=== PATIENT | male | born 1955 | race African-American/Black ===

== ENCOUNTER 2016-10-03 13:18 | Emergency (ER) ==
[2016-10-03] MEDS ORDERED: ANTIVERT PO ONE (13:59)
--- NOTE | 2016-10-03 14:03 | ED EKG INTERP ---
EKG Interpretation - EKG Time of EKG reading by physician:: 13:28 EKG Read and Signed by:: Emily Delcid EKG Interpretation (*Must complete 3 of following elements*): Abnormal Rate: 81 (possible left atrial enlargement ) Rhythm: NSR Attestation - Scribe Verification/Attestation Scribe:: Raven Poe Acting as Scribe for:: Emily Delcid Scribe documention review:: This chart was documented by a scribe and accurately reflects the service the provider performed and the decisions made by the provider.
[2016-10-03] MEDS ORDERED: ATIVAN PO ONE (14:08)
--- NOTE | 2016-10-03 14:27 | ED EKG INTERP ---
EKG Interpretation - EKG Time of EKG reading by physician:: 13:28 EKG Read and Signed by:: Emily Delcid EKG Interpretation (*Must complete 3 of following elements*): Normal Rate: 81 (possible left atrial enlargement) Rhythm: NSR Attestation - Scribe Verification/Attestation Scribe:: Raven Poe Acting as Scribe for:: Emily Delcid Scribe documention review:: This chart was documented by a scribe and accurately reflects the service the provider performed and the decisions made by the provider.
--- NOTE | 2016-10-03 14:28 | PROVIDER DOCUMENTATION ---
HPI-General Adult - General Source: patient - History of Present Illness -Gen Adult Nature of Presenting Problems: Pt is a 60 yom who came to the ED with a cc of high blood pressure. Pt reports he was dizzy earlier and his blood pressure was high. Pt reports he had a stroke last week. Pt reports his blood pressure is normal now. Location of Pain/Injury: reports: none Pain Radiation: reports: no radiation Quality of Pain: reports: none Severity: reports: mild Onset/Duration: reports: just prior to arrival Timing: reports: gone now Context/Activities at Onset: reports: recent emotional stress Associated Symptoms: reports: dizziness, other (high blood pressure) Similar Symptoms Previously?: Yes Recently seen or treated by another doctor?: Yes <Raven Poe - Last Filed: 10/03/16 15:38> <Emily Delcid - Last Filed: 10/03/16 15:59> - General Chief Complaint: B/P Problems Stated Complaint: BP HIGH Time Seen by Provider: 10/03/16 13:39 Allergies/Adverse Reactions: Patient Allergies Allergy/AdvReac Type Severity Reaction Status Date / Time No Known Allergies Allergy Verified 10/03/16 13:44 Home Medications: Amlodipine Besylate [Norvasc] 5 mg PO DAILY 09/23/16 Bromocriptine [Cycloset] 0.8 mg PO DAILY 09/23/16 Metoprolol Succinate E.r. [Toprol Xl] 100 mg PO DAILY 09/23/16 Ramipril [Altace] 10 mg PO DAILY 09/23/16 Review of Systems - Adult - REVIEW OF SYSTEMS - ADULT Constitutional: denies: chills, fever Eyes: denies: blurred vision, double vision Ears, Nose, Mouth & Throat: reports: no symptoms reported Cardiovascular: denies: heart murmur, orthopnea Respiratory: denies: pleurisy, wheezing Gastrointestinal: reports: no symptoms reported Genitourinary: reports: no symptoms reported Musculoskeletal: reports: no symptoms reported Integumentary: reports: no symptoms reported Neurological: reports: dizziness/vertigo. denies: numbness, seizure Psychiatric: denies: emotional problems, panic attacks Endocrine: reports: no symptoms reported Hematologic/Lymphatic: reports: no symptoms reported Allergic/Immunologic: reports: no symptoms reported All Other Systems: Reviewed and Negative <Raven Poe - Last Filed: 10/03/16 15:38> Past History - Adult - PAST MEDICAL HISTORY-ADULT Review of Records: reports: Old Records Reviewed, Nursing Assessment Review Major Childhood Illnesses: reports: denies history Cardiovascular: reports: HTN Respiratory: reports: denies history Gastrointestinal: reports: denies history Obstetrical/Gynecological: reports: denies history Genitourinary: reports: denies history Musculoskeletal: reports: denies history Neurological: reports: Seizures/Epilepsy Endocrine/Immune: reports: Diabetes Other Conditions: reports: denies history - PRIOR SURGERIES/PROCEDURES Surgical/Procedure History: reports: tonsillectomy - IMMUNIZATION STATUS Childhood Immunizations: See Nurse Assessment Flu Vaccine: See Nurse Assessment - FAMILY HISTORY Family History: reviewed, not pertinent <Raven Poe - Last Filed: 10/03/16 15:38> Physical Exam-General - PHYSICAL EXAM-ADULT Initial Vital Signs Reviewed: Yes - CONSTITUTIONAL General Appearance: appears well, alert, no apparent distress - EYES Eyes: PERRL/EOMI, pink conjunctivae - HEAD, EARS, NOSE, MOUTH & THROAT HENMT: normocephalic/atraumatic, moist mucous membranes, normal ENT inspection - NECK Neck: non-tender, full range of motion, normal inspection - RESPIRATORY Respiratory: chest non-tender, lungs clear, normal breath sounds - CARDIOVASCULAR Cardiovascular: normal peripheral pulses, regular rate, rhythm, no edema - GASTROINTESTINAL (ABDOMEN) Abdominal Exam: normal bowel sounds, non tender, soft - LYMPHATIC Lymphatic: no adenopathy - MUSCULOSKELETAL Back Exam: normal inspection, no CVA tenderness, no vertebral tenderness Extremity: normal range of motion, non-tender, normal gait - SKIN Integumentary: normal color, normal turgor, warm/dry - NEUROLOGIC Neurologic: grossly normal, no motor/sensory deficits - PSYCHIATRIC Psych/Mental Status: normal mood/affect, normal thought content, normal thought process, oriented x 3 <Raven Poe - Last Filed: 10/03/16 15:38> Progress - PLAN OF CARE/RESULTS Progress/Plan/Lab Results: Vital Signs - 24 hr 10/03/16 10/03/16 10/03/16 13:22 14:02 14:05 Temperature 97.7 F Pulse Rate 98 H 81 81 Respiratory 18 18 18 Rate Blood Pressure 186/106 147/96 181/105 O2 Sat by Pulse 99 100 99 Oximetry Orders Category Date Time Status HEAD W/O CONTRAST [CT] Stat Exams 10/03/16 13:58 Taken UA NIMS W/REFLEX CULT [URINALYSIS] Stat Lab 10/03/16 14:22 Completed UDS [URINE DRUG SCREEN] Stat Lab 10/03/16 14:22 Completed Lorazepam [Ativan] Med 10/03/16 14:08 Discontinued 1 mg PO NOW ONE Meclizine [Antivert] Med 10/03/16 13:59 Discontinued 25 mg PO NOW ONE EKG [EKG] Stat Ther 10/03/16 13:59 Ordered Laboratory Tests 10/03/16 10/03/16 14:22 14:22 Urine Source CLEAN CATCH Urine Color YELLOW Urine Turbidity CLEAR Urine pH 5.5 Ur Specific [place] 1.012 Urine Protein NEGATIVE Ur Glucose (Stick) 100 A Ur Ketones (Stick) TRACE A Urine Blood NEGATIVE Urine Nitrite NEGATIVE Urine Bilirubin NEGATIVE Urobilinogen Dipstick NORMAL Urine Leukocytes NEGATIVE Urine WBC (Auto) <10 Urine RBC (Auto) <10 U Epithel Cells (Auto) <10 Urine Bacteria (Auto) NEGATIVE Urine Opiates Screen NONE DETECTED Ur Oxycodone Screen NONE DETECTED Ur Methadone, Qual NONE DETECTED Ur Barbiturates Screen NONE DETECTED Ur Phencyclidine Scrn NONE DETECTED Ur Amphetamines Screen NONE DETECTED U Benzodiazepines Scrn NONE DETECTED Urine Cocaine Screen NONE DETECTED U Cannabinoids Screen NONE DETECTED - CT/MRI 1 CT Study: Head (potential subacute focal infarct in the left frontal lobe. This is probably to infarct the patient reports last week diagnosed on imaging from an outside facility. otherwise NAP) <Raven Poe - Last Filed: 10/03/16 15:38> - PLAN OF CARE/RESULTS Progress/Plan/Lab Results: Laboratory Results - last 24 hr 10/03/16 10/03/16 14:22 14:22 Urine Source CLEAN CATCH Urine Color YELLOW Urine Turbidity CLEAR Urine pH 5.5 Ur Specific [place] 1.012 Urine Protein NEGATIVE Ur Glucose (Stick) 100 A Ur Ketones (Stick) TRACE A Urine Blood NEGATIVE Urine Nitrite NEGATIVE Urine Bilirubin NEGATIVE Urobilinogen Dipstick NORMAL Urine Leukocytes NEGATIVE Urine WBC (Auto) <10 Urine RBC (Auto) <10 U Epithel Cells (Auto) <10 Urine Bacteria (Auto) NEGATIVE Urine Opiates Screen NONE DETECTED Ur Oxycodone Screen NONE DETECTED Ur Methadone, Qual NONE DETECTED Ur Barbiturates Screen NONE DETECTED Ur Phencyclidine Scrn NONE DETECTED Ur Amphetamines Screen NONE DETECTED U Benzodiazepines Scrn NONE DETECTED Urine Cocaine Screen NONE DETECTED U Cannabinoids Screen NONE DETECTED Vital Signs Temp Pulse Resp BP Pulse Ox 10/03/16 15:37 114/69 10/03/16 14:05 81 18 181/105 99 10/03/16 14:02 81 18 147/96 100 10/03/16 13:22 97.7 F 98 H 18 186/106 99 No Known Allergies Allergy (Verified 10/03/16 13:44) Amlodipine Besylate [Norvasc] 5 mg PO DAILY 09/23/16 Bromocriptine [Cycloset] 0.8 mg PO DAILY 09/23/16 Metoprolol Succinate E.r. [Toprol Xl] 100 mg PO DAILY 09/23/16 Ramipril [Altace] 10 mg PO DAILY 09/23/16 ATORVAstatin [Lipitor] 40 mg PO DAILY #90 tablet 09/25/16 Aspirin 325 mg PO DAILY #90 tablet 09/25/16 Glyburide/Metformin HCl [Glyburide-Metformin 5-500 mg] 1 each PO TID #90 tablet 09/25/16 Levetiracetam [Keppra] 500 mg PO BID #60 tablet 09/25/16 Laboratory 10/03/16 10/03/16 14:22 14:22 Urine Source CLEAN CATCH Urine Color YELLOW Urine Turbidity CLEAR Urine pH 5.5 Ur Specific [place] 1.012 Urine Protein NEGATIVE Ur Glucose (Stick) 100 A Ur Ketones (Stick) TRACE A Urine Blood NEGATIVE Urine Nitrite NEGATIVE Urine Bilirubin NEGATIVE Urobilinogen Dipstick NORMAL Urine Leukocytes NEGATIVE Urine WBC (Auto) <10 Urine RBC (Auto) <10 U Epithel Cells (Auto) <10 Urine Bacteria (Auto) NEGATIVE Urine Opiates Screen NONE DETECTED Ur Oxycodone Screen NONE DETECTED Ur Methadone, Qual NONE DETECTED Ur Barbiturates Screen NONE DETECTED Ur Phencyclidine Scrn NONE DETECTED Ur Amphetamines Screen NONE DETECTED U Benzodiazepines Scrn NONE DETECTED Urine Cocaine Screen NONE DETECTED U Cannabinoids Screen NONE DETECTED Orders Category Date Time Status FSBS [Finger Stick Blood Sugar (ED)] DIRECTED Care 10/03/16 15:52 Active HEAD W/O CONTRAST [CT] Stat Exams 10/03/16 13:58 Draft UA NIMS W/REFLEX CULT [URINALYSIS] Stat Lab 10/03/16 14:22 Completed UDS [URINE DRUG SCREEN] Stat Lab 10/03/16 14:22 Completed Lorazepam [Ativan] Med 10/03/16 14:08 Discontinued 1 mg PO NOW ONE Meclizine [Antivert] Med 10/03/16 13:59 Discontinued 25 mg PO NOW ONE EKG [EKG] Stat Ther 10/03/16 13:59 Ordered - REASSESSMENT Reassessment #1 Time Reassessed: 15:54 Status: improving (Pt normalized after PO Ativan. Pt has no complaints. Pt had a full stroke work up last week in the hospital and his CT scan showed subacute changes which is compatible with his previous stroke.) <Emily Delcid - Last Filed: 10/03/16 15:59> Departure <Raven Poe - Last Filed: 10/03/16 15:38> - Departure Time of Disposition Order: 15:55 Certified Medical Emergency: Emergent <Emily Delcid - Last Filed: 10/03/16 15:59> - Departure DIAGNOSIS: Elevated blood pressure, situational, Status post stroke Disposition: HOME 01 Condition: Stable Additional Instructions: Follow up with regular MD in 2-3 days. Return to ER as needed. Plenty of oral fluids. Referrals: Mariam Pascual MD [Primary Care Provider] - Attestation - Scribe Verification/Attestation Scribe:: Raven Poe Acting as Scribe for:: Emily Delcid Scribe documention review:: This chart was documented by a scribe and accurately reflects the service the provider performed and the decisions made by the provider. <Raven Poe - Last Filed: 10/03/16 15:38> Physician Attestation
[2016-10-03 14:29] LABS: URINE CULTURE NEEDED? NO; URINE MICRO REVIEW NEEDED? NO; URINE SOURCE CLEAN CATCH
[2016-10-03 14:33] LABS: BILIRUBIN URINE NEGATIVE (NEGATIVE); BLOOD URINE NEGATIVE (NEGATIVE); COLOR YELLOW; GLUCOSE URINE 100 mg/dL (NEGATIVE); LEUKOCYTES URINE NEGATIVE (NEGATIVE); NITRITE URINE NEGATIVE (NEGATIVE); PH URINE 5.5; PROTEIN URINE NEGATIVE (NEGATIVE); SP GRAVITY URINE 1.012; TURBIDITY URINE CLEAR (CLEAR); UR EPITHELIAL CELLS <10 /HPF (<10); URINE BACTERIA NEGATIVE /HPF; URINE RBC <10 /HPF (<10); URINE WBC <10 /HPF (<10); UROBILINOGEN URINE NORMAL (NORMAL)
[2016-10-03 14:42] LABS: UR AMPHETAMINES QUAL NONE DETECTED (NONE DETECT); UR BARBITUATES QUAL NONE DETECTED (NONE DETECT); UR BENZODIAZEPIN QUAL NONE DETECTED (NONE DETECT); UR CANNABINOIDS QUAL NONE DETECTED (NONE DETECT); UR COCAINE QUAL NONE DETECTED (NONE DETECT); UR METHADONE QUAL NONE DETECTED (NONE DETECT); UR OPIATES QUAL NONE DETECTED (NONE DETECT); UR OXYCODONE QUAL NONE DETECTED (NONE DETECT); UR PCP QUAL NONE DETECTED (NONE DETECT)
--- NOTE | 2016-10-03 15:16 | Diag Imaging Result Document ---
PROCEDURE NAME: HEAD W/O CONTRAST - 10/03/2016 CT HEAD WITHOUT CONTRAST: COMPARISON: None available. FINDINGS: There is patchy low density in the periventricular and subcortical white matter suggesting mild to moderate microangiopathy. There is a focus of potential cortical low density in the left frontal lobe seen on image 43 of series 2. This low density may represent a focal subacute infarct, given the patient reports a history of an infarct 1 week ago detected on imaging from an outside facility. There is no other evidence of acute infarct, given the limitations of CT versus MRI, otherwise. There is no discrete intracranial mass, mass effect, or intracranial hemorrhage. There are several maxillary sinus small mucous retention cysts. Surrounding soft tissues and bony structures are unremarkable otherwise. 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 Please correlate with the patient's clinical history and the prior report from the outside facility.
[2016-10-03 15:37] VITALS: BP 114/69
--- NOTE | 2016-10-05 06:13 | EKG Report ---
Test Performed on : 10/03/2016 1:28:29 PM Test Reason : AMS Blood Pressure : / mmHG Vent. Rate : 081 BPM Atrial Rate : 081 BPM P-R Int : 142 ms QRS Dur : 074 ms QT Int : 368 ms P-R-T Axes : 060 037 007 degrees QTc Int : 427 ms Normal sinus rhythm. Possible Left atrial enlargement Borderline ECG When compared with ECG of 23-SEP-2016 21:42, No significant change was found Unconfirmed Result
== END 2016-10-03 16:36 | disposition home or self-care (01) ==
LOC: ED 13:18
DX: I10 Essential (primary) hypertension (principal); R42 Dizziness and giddiness; E11.9 Type 2 diabetes mellitus without complications; Z79.899 Other long term (current) drug therapy; Z86.73 Personal history of transient ischemic attack (TIA), and cerebral infarction without residual deficits
CPT/HCPCS: 70450; 81001; 82948; 93005; G0480

== ENCOUNTER 2016-11-27 00:31 | Emergency (ER) ==
--- NOTE | 2016-11-27 01:05 | PROVIDER DOCUMENTATION ---
HPI-General Adult - General Chief Complaint: B/P Problems Stated Complaint: STROKE SX Time Seen by Provider: 11/27/16 00:51 Source: patient, family Allergies/Adverse Reactions: Patient Allergies Allergy/AdvReac Type Severity Reaction Status Date / Time No Known Allergies Allergy Verified 10/03/16 13:44 Home Medications: Home Medication List Medication Instructions Recorded Confirmed Last Taken Type Amlodipine Besylate [Norvasc] 5 mg PO DAILY 09/23/16 10/03/16 10/03/16 History Bromocriptine [Cycloset] 0.8 mg PO DAILY 09/23/16 10/03/16 10/03/16 History Metoprolol Succinate E.r. [Toprol 100 mg PO DAILY 09/23/16 10/03/16 10/03/16 History Xl] Ramipril [Altace] 10 mg PO DAILY 09/23/16 10/03/16 10/03/16 History ATORVAstatin [Lipitor] 40 mg PO DAILY #90 tablet 09/25/16 10/03/16 10/03/16 Rx Aspirin 325 mg PO DAILY #90 tablet 09/25/16 10/03/16 10/03/16 Rx Glyburide/Metformin HCl 1 each PO TID #90 tablet 09/25/16 10/03/16 10/03/16 Rx [Glyburide-Metformin 5-500 mg] Levetiracetam [Keppra] 500 mg PO BID #60 tablet 09/25/16 10/03/16 10/03/16 Rx Lorazepam [Ativan] 1 mg PO Q12H PRN PRN #5 tablet 10/03/16 Unknown Rx - History of Present Illness -Gen Adult Nature of Presenting Problems: 61 yo male presents to ER with c/o nervousness and shortness of breath that started 2 hours ago but has improved since taking his ativan about 1.5 hours ago. He denies cough/fever/chills/urinary problems. He states his blood sugar was 111 this morning[address] He saw Dr. Pascual last Wednesday for the same symptoms and was given ativan to use prn. He only takes it 1-2 times a week. Location of Pain/Injury: reports: none Pain Radiation: reports: no radiation Quality of Pain: reports: none Severity: reports: mild Onset/Duration: reports: 1-3 hours ago Timing: reports: still present, improving Context/Activities at Onset: reports: none Modifying Factors: improves with: nothing Associated Symptoms: reports: anxiety, shortness of breath Similar Symptoms Previously?: Yes Recently seen or treated by another doctor?: Yes (saw Dr. Pascual last Wednesday) Review of Systems - Adult - REVIEW OF SYSTEMS - ADULT Constitutional: reports: no symptoms reported Eyes: reports: no symptoms reported Ears, Nose, Mouth & Throat: reports: no symptoms reported Cardiovascular: reports: no symptoms reported Respiratory: reports: see HPI, shortness of breath Gastrointestinal: reports: no symptoms reported Genitourinary: reports: no symptoms reported Musculoskeletal: reports: no symptoms reported Integumentary: reports: no symptoms reported Neurological: reports: no symptoms reported Psychiatric: reports: see HPI, anxiety Endocrine: reports: no symptoms reported Hematologic/Lymphatic: reports: no symptoms reported Allergic/Immunologic: reports: no symptoms reported All Other Systems: Reviewed and Negative Past History - Adult - PAST MEDICAL HISTORY-ADULT Review of Records: reports: Old Records Reviewed, Nursing Assessment Review, Medications Reviewed, Social history reviewed & non-contributory. Major Childhood Illnesses: reports: denies history Cardiovascular: reports: HTN Respiratory: reports: denies history Gastrointestinal: reports: denies history Obstetrical/Gynecological: reports: denies history Genitourinary: reports: denies history Musculoskeletal: reports: denies history Neurological: reports: CVA, Seizures/Epilepsy Endocrine/Immune: reports: Diabetes Other Conditions: reports: denies history - PRIOR SURGERIES/PROCEDURES Surgical/Procedure History: reports: tonsillectomy - IMMUNIZATION STATUS Childhood Immunizations: See Nurse Assessment Flu Vaccine: See Nurse Assessment - FAMILY HISTORY Family History: reviewed, not pertinent - SOCIAL HISTORY Smoking: denies, non-smoker Substance Use: none/never, denies Alcohol Use Frequency: never Living Situation: family Physical Exam-General - PHYSICAL EXAM-ADULT Initial Vital Signs Reviewed: Yes - CONSTITUTIONAL General Appearance: appears well, alert, no apparent distress, anxious - EYES Eyes: PERRL/EOMI, pink conjunctivae - HEAD, EARS, NOSE, MOUTH & THROAT HENMT: normocephalic/atraumatic, moist mucous membranes - RESPIRATORY Respiratory: lungs clear, normal breath sounds, no respiratory distress - CARDIOVASCULAR Cardiovascular: normal peripheral pulses, regular rate, rhythm - GASTROINTESTINAL (ABDOMEN) Abdominal Exam: normal bowel sounds, non tender, soft - MUSCULOSKELETAL Back Exam: normal inspection Extremity: normal range of motion, non-tender, normal inspection, no pedal edema Peripheral Pulses: radial (R): 2+, radial (L): 2+, dorsalis-pedis (R): 2+, dorsalis-pedis (L): 2+ - SKIN Integumentary: normal color, normal turgor, warm/dry - NEUROLOGIC 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 Had a 10 minutes discussion on a diabetic diet. Laboratory Tests 11/27/16 11/27/16 11/27/16 00:50 01:03 01:10 WBC RBC Hgb Hct MCV MCH MCHC RDW Std Deviation Plt Count MPV Immature Gran % (Auto) Neut % (Auto) Lymph % (Auto) [place] % (Auto) Eos % (Auto) Baso % (Auto) Immature Gran # (Auto) Neut # (Auto) Lymph # (Auto) [place] # (Auto) Eos # (Auto) Baso # (Auto) Sodium 134 L Potassium 4.0 Chloride 99 Carbon Dioxide 25 Anion Gap 10 BUN 10 Creatinine 0.9 Estimated GFR/1.73 m2 > 60 BUN/Creatinine Ratio 11 Glucose 293 H POC Glucose 267 H D Calculated Osmolality 278 Calcium 9.4 Total Bilirubin 0.30 AST 15 ALT 18 Alkaline Phosphatase 88 Total Protein 7.4 Albumin 4.3 Globulin 3.0 Albumin/Globulin Ratio 1.0 Urine Source VOIDED Urine Color YELLOW Urine Clarity CLEAR Urine pH 6.5 Ur Specific [place] 1.005 Urine Protein 1+(30 mg/dL) A Urine Ketones NEGATIVE Urine Blood NEGATIVE Urine Nitrite NEGATIVE Urine Bilirubin NEGATIVE Urine Urobilinogen NORMAL Urine Microscopic RBC <10 Urine WBC NEGATIVE Urine Microscopic WBC <10 Ur Epithelial Cells <10 Urine Bacteria NEGATIVE Urine Glucose 3+(500 mg/dL) A 11/27/16 01:10 WBC 7.47 RBC 5.03 Hgb 15.2 Hct 42.7 MCV 84.9 MCH 30.2 MCHC 35.6 RDW Std Deviation 13.1 Plt Count 291 MPV 11.4 H Immature Gran % (Auto) 0.1 Neut % (Auto) 65.2 Lymph % (Auto) 22.6 [place] % (Auto) 10.6 H Eos % (Auto) 1.1 Baso % (Auto) 0.4 Immature Gran # (Auto) 0.01 Neut # (Auto) 4.87 Lymph # (Auto) 1.69 [place] # (Auto) 0.79 H Eos # (Auto) 0.08 Baso # (Auto) 0.03 Sodium Potassium Chloride Carbon Dioxide Anion Gap BUN Creatinine Estimated GFR/1.73 m2 BUN/Creatinine Ratio Glucose POC Glucose Calculated Osmolality Calcium Total Bilirubin AST ALT Alkaline Phosphatase Total Protein Albumin Globulin Albumin/Globulin Ratio Urine Source Urine Color Urine Clarity Urine pH Ur Specific [place] Urine Protein Urine Ketones Urine Blood Urine Nitrite Urine Bilirubin Urine Urobilinogen Urine Microscopic RBC Urine WBC Urine Microscopic WBC Ur Epithelial Cells Urine Bacteria Urine Glucose Orders Category Date Time Status Finger Stick Blood Sugar (ED) DIRECTED Care 11/27/16 00:58 Active Repeat Vital Signs .Blood Pressure Care 11/27/16 01:46 Active Repeat Vital Signs .Heart Rate Care 11/27/16 01:46 Active CHEST-2 VIEWS [RAD] Stat Exams 11/27/16 00:58 Taken CBC WITH ELECTRONIC DIFF [HEME] Stat Lab 11/27/16 01:10 Completed COMPREHENSIVE METABOLIC PANEL [CHEM] Stat Lab 11/27/16 01:[address] W/POSS RFLX CULT [URINALYSIS] Stat Lab 11/27/16 00:50 Completed Clonidine [Catapres] Med 11/27/16 01:08 Discontinued 0.2 mg PO NOW ONE Vital Signs - 24 hr 11/27/16 11/27/16 11/27/16 00:37 01:30 01:55 Temperature 97.7 F Pulse Rate 116 H 85 Respiratory 18 18 Rate Blood Pressure 216/113 169/106 159/095 O2 Sat by Pulse 98 96 Oximetry - REASSESSMENT Reassessment #1 Time Reassessed: 02:00 (improved B/P and anxiety resolved. Patient states he feels much better) Status: improving - XRAY 1 XRAY Study: Chest Impression: Normal (no acute disease) XRAY Interpretation: Interpreted by Dr. Pascual Departure - Departure Time of Disposition Order: 02:11 DIAGNOSIS: Anxiety, Hyperglycemia, Health education/counseling HTN (hypertension) Qualifiers: Hypertension type: essential hypertension Qualified Code(s): I10 - Essential ( primary) hypertension Disposition: HOME 01 Certified Medical Emergency: Emergent Condition: Good Additional Instructions: Follow up with primary care doctor this week. Follow a low carb diabetic diet. Take home medications as prescribed. ED Follow Up Instructions: You have been treated by a care provider in the Emergency Department. These instructions are being provided to you so you can have an understanding of how to care for yourself upon discharge. Upon discharge from the Emergency Department, you are responsible for making arrangements for follow-up care by a physician of your choice. Take all prescribed medications as directed. Return to the Emergency Department immediately for any new or worsening symptoms. You may call the Physician Referral phone number at [phone] to obtain a list of Physicians who are taking new patients. Referrals: Mariam Pascual MD [Primary Care Provider] - Attestation - Physician/ ADAM Attestation Patient care was provided by Advanced Practice Provider:: Yes Advanced Practice Provider:: Dariela Andersen Advanced Practice Provider documentation review:: The Mid-level provider documentation, treatment plan and medical decision making was reviewed by the physician who agrees with all treatment and medical decision making by the MLP.
[2016-11-27] MEDS ORDERED: CATAPRES PO ONE (01:08)
[2016-11-27 01:11] LABS: MANUAL DIFF NEEDED? NO
[2016-11-27 01:12] LABS: URINE CULTURE PL NEEDED? NO; URINE SOURCE VOIDED
[2016-11-27 01:24] LABS: BASO% 0.4 % (0.0-0.8); EOS# 0.08 X1000 (0.0-0.7); EOS% 1.1 % (0.0-10.0); HEMATOCRIT 42.7 % (42.0-52.0); HEMOGLOBIN 15.2 g/dL (14.0-18.0); IMM GRAN# 0.01 X1000 (0.0-0.04); IMM GRAN% 0.1 % (0.0-0.5); LYMPH# 1.69 X1000 (1.2-3.4); LYMPH% 22.6 % (20.5-51.1); MCH 30.2 PG (27-31); MCHC 35.6 g/dL (33-37); MCV 84.9 FL (81-99); MONO# 0.79 X1000 (0.11-0.59); MONO% 10.6 % (1.7-9.3); MPV 11.4 FL (7.4-10.4); NEUT% 65.2 % (42.2-75.2); PLT 291 X1000 (130-400); RBC 5.03 XMIL (4.7-6.1)
[2016-11-27 01:28] LABS: BILIRUBIN URINE NEGATIVE (NEGATIVE); BLOOD URINE NEGATIVE (NEGATIVE); CLARITY CLEAR (CLEAR); COLOR YELLOW; LEUKOCYTES URINE NEGATIVE (NEGATIVE); NITRITE URINE NEGATIVE (NEGATIVE); PH URINE 6.5; PROTEIN URINE 1+(30 mg/dL) mg/dL (NEGATIVE); SP GRAVITY URINE 1.005; URINE EPITHELIAL CELLS <10 /HPF (<10); URINE RBC <10 /HPF (<10); URINE WBC <10 /HPF (<10); UROBILINOGEN URINE NORMAL
[2016-11-27 01:35] LABS: AGAP 10; ALBUMIN 4.3 g/dL (3.5-5.0); ALKALINE PHOSPHATASE 88 U/L (32-122); BUN 10 mg/dL (8-22); CALCIUM 9.4 mg/dL (8.8-10.2); CHLORIDE 99 mmol/L (98-107); COSMO 278; GOT 15 U/L (10-34); GPT 18 U/L (10-44); SODIUM 134 mmol/L (136-145); TCO2 25 mmol/L (25-35); TOTAL PROTEIN 7.4 g/dL (6.3-8.3)
[2016-11-27 01:55] VITALS: BP 159/095
--- NOTE | 2016-11-27 07:51 | Diag Imaging Result Document ---
PROCEDURE NAME: CHEST-2 VIEWS - 11/27/2016 FRONTAL AND LATERAL CHEST, TWO VIEWS: COMPARISON: 09/23/2016. FINDINGS: The lungs are well expanded. The heart is not enlarged. The vessels are not distended. No pneumonia. No pleural effusions. No free air beneath the diaphragm. IMPRESSION: No acute abnormality.
== END 2016-11-27 02:31 | disposition home or self-care (01) ==
LOC: P.ED 00:31
DX: E11.65 Type 2 diabetes mellitus with hyperglycemia (principal); I10 Essential (primary) hypertension; F41.9 Anxiety disorder, unspecified; R06.02 Shortness of breath; R45.0 Nervousness; E11.9 Type 2 diabetes mellitus without complications; R56.9 Unspecified convulsions; Z79.82 Long term (current) use of aspirin; Z79.899 Other long term (current) drug therapy; Z71.89 Other specified counseling; Z86.73 Personal history of transient ischemic attack (TIA), and cerebral infarction without residual deficits
CPT/HCPCS: 71020; 80053; 81001; 82948; 85025

== ENCOUNTER 2017-04-05 11:16 | Inpatient (IN) ==
--- NOTE | 2017-04-05 15:53 | Diag Imaging Result Doc PS360 ---
MRI LOWER EXT W/WO CON-LEFT - 04/05/2017 INDICATION: left foot decubitus ulcer TECHNIQUE: COMPARISON: None FINDINGS: There is soft tissue swelling with hyperintensity and enhancement at the lateral forefoot, particularly at the head of the fifth metatarsal. No significant fluid collections. Bone marrow signal is normal. There is degeneration at the base of the great toe. IMPRESSION: 1. Soft tissue swelling suggesting cellulitis at the lateral forefoot. No evidence for osteomyelitis. 2. Degenerative changes at the base of the great toe. Electronically signed by Jluis Childers 04/05/2017 3:50 PM
[2017-04-05] MEDS: ZOSYN 3.375 GM/NS 3.375 GM/50 ML IVPB IV SCH ×2 (17:17→22:30)
[2017-04-05 17:27] LABS: MANUAL DIFF NEEDED? NO
[2017-04-05 17:29] LABS: BASO% 0.6 % (0.0-0.8); EOS# 0.09 X1000 (0.0-0.7); EOS% 1.3 % (0.0-10.0); HEMATOCRIT 43.6 % (42.0-52.0); LYMPH# 1.46 X1000 (1.2-3.4); LYMPH% 20.8 % (20.5-51.1); MCH 30.2 PG (27-31); MCHC 34.4 g/dL (33-37); MCV 87.7 FL (81-99); MONO# 0.68 X1000 (0.11-0.59); MONO% 9.7 % (1.7-9.3); MPV 10.9 FL (7.4-10.4); NEUT% 67.6 % (42.2-75.2); PLT 278 X1000 (130-400); RBC 4.97 XMIL (4.7-6.1)
[2017-04-05] MEDS ORDERED: HYDROXYZINE PO PRN (17:39)
[2017-04-05 17:40] LABS: HEMOGLOBIN A1C 10.6 % (4.8-6.0)
[2017-04-05 17:43] LABS: AGAP 9; BUN 10 mg/dL (8-22); CHLORIDE 101 mmol/L (98-107); COSMO 273; POTASSIUM 4.2 mmol/L (3.5-5.1); SODIUM 136 mmol/L (136-145); TCO2 26 mmol/L (25-35)
[2017-04-05 18:31] LABS: SED RATE 0 mm/hr (0-15)
[2017-04-05] MEDS ORDERED: BOOSTRIX VACCINE IM ONE (21:53)
--- NOTE | 2017-04-05 22:28 | HISTORY AND PHYSICAL ---
CHIEF COMPLAINT: Followup from the emergency room yesterday at [facility] for elevated blood pressure and shortness of breath. Also had developed 2 month history of decubitus pressure ulcer, neuropathy from the bottom of the left foot which had not been noticed at the last visit. HISTORY OF PRESENT ILLNESS: He is a 61-year-old, noncompliant, uncontrolled diabetic male who came here to my office today in followup from the emergency room visit. Apparently his said that he had a hole in the left foot which is not getting better. He did not notice until few weeks ago. After removing the sock, he has purulent, foul smelling pus coming from 1 cm neuropathy ulcer on the bottom of the left forefoot between 4th and 5th metatarsal space. It is 1 cm in diameter and 0.5 cm deep. The whole foot was swollen and decreased sensory exam with monofilament. He has been hospitalized basically for rule out osteomyelitis, debridement, IV antibiotics, check the arterial blood flow study. His sugars are running 250. As a result, hospital admission was warranted. PAST MEDICAL HISTORY: BPH, uncontrolled diabetes, history of seizures from stroke, hyperlipidemia, hypertension, peripheral neuropathy due to diabetes, left frontal lobe stroke. PAST SURGICAL HISTORY: Bilateral middle ear tubes and circumcision. MEDICINES: Altace 10 mg twice daily, aspirin 81 mg daily, Plavix 75 daily, Glucovance 5/500 two tablets p.o. b.i.d., Keppra 500 p.o. b.i.d., Lipitor 40 mg daily, metoprolol 100 mg daily, Norvasc 10 mg daily. ALLERGIES: Not known. SOCIAL HISTORY: Lives in [place]. No smoking. No alcohol. Working in [employer]. second time 5 years, 2 children. FAMILY HISTORY: Father at the age of 67 from diabetes and heart attack. Mom is 78 with diabetes. HEALTH MAINTENANCE: Flu vaccine 2016, pneumococcal vaccine 2016. Last prostate exam September 2016. Colonoscopy 2011. Last tetanus was not up to date. REVIEW OF SYSTEMS: HEENT: No headache. No vision problem. No earache. No sore throat. No ear pain. Neck: No goiter. No lymphadenopathy. No neck rigidity. No neck pain. Cardiopulmonary: No chest pain, shortness of breath, PND, orthopnea. GI: No nausea, vomiting, abdominal pain. : No history of hesitancy, frequency, dysuria. Musculoskeletal: Ulcer on the bottom of the left foot. No back pain. Neurologic: No focal symptoms or weakness. Seizures are well controlled. PHYSICAL EXAMINATION: VITAL SIGNS: Afebrile. Vital signs stable. 6 feet, 174 pounds. HEENT: Atraumatic, normocephalic. Pupils equal, reactive to light. TMs are normal. Nose and throat within normal limits. NECK: Supple. No lymphadenopathy. JVD is not elevated. CHEST: Bilateral air entry. No rales, no wheezing. HEART: Sounds are regular. No murmur. ABDOMEN: Belly is soft, nontender. Good bowel sounds. No masses palpable. EXTREMITIES: Decreased monofilament exam 1 cm neuropathic ulcer on the bottom of the left foot between the 4th and 5th the inter metatarsal space. INVESTIGATIONS: CBC is normal. SMA 7 is normal. A1c 10.6. CRP was high. Sedimentation rate was 0. MRI of the left foot: No evidence of osteomyelitis noted. Consistent with cellulitis. ASSESSMENT AND PLAN: 1. A 61-year-old male with uncontrolled diabetes, noncompliance, presented with a neuropathy callus on the bottom of the left foot. Plan is a local debridement, wound cultures, surgical consult, IV Zosyn. Deep venous thrombosis prophylaxis with Lovenox. 2. Hyperlipidemia, on Lipitor. 3. Uncontrolled diabetes, on Glucovance. We will check the C-peptide in the morning. 4. Hypertension, on Altace and metoprolol and amlodipine. 5. History of seizures, on Keppra 500 p.o. b.i.d. Discussed with Dr. Zurita and will follow up on his recommendations. Also check ankle-brachial index. cc: Alberto Pascual MD
[2017-04-05] MEDS: ALTACE PO SCH (22:30)
[2017-04-05] MEDS: LIPITOR PO SCH (22:30)
[2017-04-05] MEDS: KEPPRA PO SCH (22:30)
[2017-04-05] MEDS: HUMALOG SUBQ SCH (22:31)
[2017-04-06] MEDS: ZOSYN 3.375 GM/NS 3.375 GM/50 ML IVPB IV SCH ×4 (03:02→22:38)
[2017-04-06] MEDS: HUMALOG SUBQ SCH ×4 (06:28→22:32)
--- NOTE | 2017-04-06 07:03 | VASCULAR LAB ---
DATE: 04/05/2017 STUDY: Lower extremity arterial study at rest. REFERRING PHYSICIAN: Dr. Pascual. INDICATION: The patient is diabetic and has ulcerations of the left foot. Brachial pressure 170. Right high thigh pressure 250. Right low thigh pressure 236. Right calf pressure 159. Right dorsalis pedis 148. Right posterior tibial 139. Right AB index 0.87. Right great toe pressure 102. Right toe to brachial index 0.60. The PVRs appear okay. The PPGs at the toe are diminished. On the left, high thigh pressure 250. Left low thigh pressure 246. Left calf pressure 165. Left dorsalis pedis 151. Left posterior tibial 165. Left ankle brachial index 0.97. Left great toe pressure 98. Left toe to brachial index 0.58. The PVRs again are satisfactory to the ankle. The PPGs at the toe are diminished. INTERPRETATION: This study shows evidence of digital vessel disease. The healing could be compromised due to the digital vessel disease. This certainly would not be consistent with claudication. cc: MD Alberto De La Fuente MD
[2017-04-06 09:33] LABS: INR 1.03; PROTIME 10.8 Seconds (9.2-11.7)
[2017-04-06] MEDS ORDERED: NS 250 ML ONE (09:54)
[2017-04-06] MEDS: NORVASC PO SCH (10:22)
[2017-04-06] MEDS: TOPROL XL PO SCH (10:22)
[2017-04-06] MEDS: KEPPRA PO SCH ×2 (10:23→22:33)
[2017-04-06] MEDS: ALTACE PO SCH ×2 (10:23→22:36)
[2017-04-06] MEDS: GLUCOPHAGE PO SCH ×2 (10:24→22:37)
[2017-04-06] MEDS: DIABETA PO SCH ×2 (10:24→22:37)
--- NOTE | 2017-04-06 11:17 | PROGRESS NOTE ---
DATE: 04/06/2017 SUBJECTIVE: The patient is doing very well. Patient was seen by Dr. Zurita, waiting for debridement. REVIEW OF SYSTEMS: None reported. OBJECTIVE: Vital Signs: Stable. HEENT: Within normal limits. Neck: Supple. Chest: Clear. Heart: Sounds are regular. Abdomen: Belly is soft, nontender. Good bowel sounds. Extremities: Left foot: A 1 cm pressure ulcer on the left foot noted. Foul-smelling discharge. INVESTIGATIONS: Wound cultures are pending. Vascular studies: Right SANDRA 0.8, left SANDRA 0.9. Significant distal vessel disease. Right toe brachial index 0.6. On the left side, it is 0.5. CRP is slightly high. MRI of the foot: No evidence of osteomyelitis. ASSESSMENT AND PLAN: 1. Left foot 5th neuropathic ulcer with localized cellulitis. Elevated CRP. No evidence of osteomyelitis. Continue on IV Zosyn. 2. Ankle-brachial index: No evidence of resting ischemia, surgical debridement. 3. Uncontrolled diabetes. We will follow up on C-peptide. 4. Hyperlipidemia, on Lipitor. 5. Hypertension, on metoprolol and Altace. We will follow up. LEVEL OF DOCUMENTATION: Twenty-five minutes. cc: Alberto Pascual MD
--- NOTE | 2017-04-06 12:30 | Diag Imaging Result Doc PS360 ---
EXAM: 3 PHASE BONE SCAN HISTORY: r/o osteo left 5th toe TECHNIQUE: Three phase scanning over the feet and ankles following intravenous injection of 25.8 mCi of technetium 99m MDP. COMMENT: There is markedly hyperemic flow to the left lower leg and foot compared to the right. There is also increased blood pool activity over the left foot and lower leg compared to the right. There is increased static bone activity in the area of the great toe and fifth toe on the left and to a lesser extent on the dorsum of the tarsal region on the right side, the right fifth metatarsophalangeal joint, and the first metatarsophalangeal joint on the right side. Plain radiography was also obtained of the left foot for correlation. There is an ulcer apparently on the plantar aspect of the fifth metatarsophalangeal joint. The presence of static bone activity in this area makes the diagnosis of osteomyelitis likely. The possibility of septic arthritis cannot be excluded. There are some degenerative changes in the first metatarsophalangeal joint which may be responsible for the increased activity in this region. There is extensive arterial calcification particularly in the dorsalis pedis artery. IMPRESSION: Hyperemia throughout the left foot which may be indicative of cellulitis. Possibility of osteomyelitis and/or septic arthritis in the left fifth metatarsophalangeal joint cannot be excluded. Electronically signed by Chad eVntura 04/06/2017 12:28 PM
--- NOTE | 2017-04-06 12:51 | Diag Imaging Result Doc PS360 ---
EXAM: FOOT COMPLETE LEFT INDICATION: TO GO WITH [facility] BONE SCAN TECHNIQUE: 3 views COMPARISON: None. FINDINGS: There is soft tissue edema and ulceration underlying the fifth MTP joint. There are no discrete bony erosions involving the head of the fifth metatarsal or base of the proximal fifth phalanx. However, I'm still suspicious that there is early osteomyelitis given the findings on bone scan. There has probably not been in enough time to manifest radiographically. A follow-up radiograph is recommended. There are mild degenerative changes at several IP joints and the first MTP joint. There is atherosclerotic calcification at the dorsalis pedis. IMPRESSION: Soft tissue edema and ulceration indicating cellulitis underlying the fifth MTP joint but no discrete bony erosions are identified by plain radiograph. Please see above discussion. Electronically signed by Luis Daniel Silvestre 04/06/2017 12:48 PM
[2017-04-06] MEDS ORDERED: DIPRIVAN 1% ONE (15:31)
[2017-04-06] MEDS ORDERED: XYLOCAINE-MPF 2% ONE (15:32)
[2017-04-06] MEDS ORDERED: QUELICIN (DOSE) ONE (15:43)
[2017-04-06] MEDS ORDERED: HYDROGEN PEROXIDE SOLUTION ONE (16:01)
--- NOTE | 2017-04-06 16:07 | CONSULTATION ---
DATE OF CONSULTATION: 04/06/2017 CONCLUSION: The patient has a cellulitis involving the left foot. Both by bone scan and x-ray there is no bone involvement. A culture taken from the foot is growing gram- negative rods. RECOMMENDATION: I agree with the decision to treat the patient with Zosyn pending culture results. Today Dr. Zurita will be debriding the patient's foot. DISCUSSION: The patient tells me that for about 2 months he has had progressive pain and swelling of his left foot. In the past 2-3 days the patient's drainage from the left foot has an odor to it. His bone scan shows evidence of cellulitis. X-ray also shows evidence of cellulitis. Neither of the procedures shows osteomyelitis. The patient's CBC shows a white count of 7,030, hemoglobin 15, and platelet count 278,000. Creatinine 0.7. GFR is greater than 60. PAST MEDICAL HISTORY/REVIEW OF SYSTEMS: Eyes and ears: The patient has good hearing and vision. Neck: No stiffness. Respiratory: No cough or shortness of breath. Cardiac: No chest pain or palpitations. GI: No nausea, vomiting, or diarrhea. The patient normally has only 1 stool every 1-2 days. Bones, joints, muscles: See discussion about the patient's left foot. He is not bothered elsewhere by any bone or joint pain or muscle aches. Endocrine: The patient is diabetic but he does not have thyroid disease. Neurologic: Patient does not have seizures. He is not losing any motor or sensory function in his extremities. Integument: No rash. The remainder of the patient's review of systems was completed and was negative. PREVIOUS HOSPITALIZATIONS AND OPERATIONS: He has had a tonsillectomy, cataract surgery, and a stroke. MEDICAL DISEASES: Positive for diabetes mellitus, hypertension, stroke, cataract, and hyperlipidemia. INFECTIOUS DISEASE HISTORY: Positive for UTI. Negative for pneumonia. FAMILY HISTORY: Positive for diabetes mellitus, myocardial infarction, stroke, and hypertension. SOCIAL HISTORY: The patient lives in [place]. 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 He does not smoke or drink or abuse drugs. He has no pets at home. ALLERGIES: He has no known drug allergies. HOME MEDICATIONS: Include the following. He takes aspirin, amlodipine, metoprolol, Vistaril, Altace, Keppra, glyburide, and atorvastatin. PHYSICAL EXAMINATION: Vital Signs: Temperature is 98.1 degrees, pulse 68, respirations 17, blood pressure 151/86. Patient is 6 feet tall, weighs 174 pounds. General: This is a healthy- appearing, middle-aged male. He is in no acute distress. HEENT: The only part that is not healthy is his oral hygiene. He is missing many of his teeth and some of his teeth have caries. He can hear my spoken words and see near objects. Neck: No meningismus. Lungs : Clear to auscultation. Cardiovascular: Regular heart rate. I had difficulty feeling peripheral pulses in his legs. Abdomen: Soft and nontender. Extremities: The left foot had an ulcer on it in the distal lateral part. There was no drainage but there was an odor from the ulcerated area. Neurologic: Patient is alert. He can move his extremities. There is no tremor. His sensation is intact to touch. His memory as regarding his medical history was slightly diminished. Thank you for the consult. cc: MD Alberto Granger MD MTDD
--- NOTE | 2017-04-06 16:41 | OPERATIVE NOTE ---
PROCEDURE DATE: 04/06/2017 PREOP: Cellulitis with osteomyelitis left foot, lateral 5th metatarsal head. PROCEDURE: Debridement. DESCRIPTION OF PROCEDURE: The patient was brought to the operating room. After satisfactory induction of IV and LMA anesthesia, his left foot was prepped and draped in the appropriate manner. The ulcerated lesion was debrided down to and including the metatarsal head on the 5th toe. He has osteo on his bone scan. The wound was irrigated with peroxide. It had previously been cultured with 3 different bugs on the Gram stain. It was packed with Betadine-soaked Kerlix. A sterile dressing was applied. He was subsequently awakened in the operating room and transferred to recovery. ESTIMATED BLOOD LOSS: Less than 5 mL. cc: MD Alberto Luque MD
[2017-04-06] MEDS: ASPIRIN PO SCH (22:35)
[2017-04-06] MEDS: LOVENOX SUBQ SCH (22:35)
[2017-04-06] MEDS: LIPITOR PO SCH (22:36)
[2017-04-07] MEDS: ZOSYN 3.375 GM/NS 3.375 GM/50 ML IVPB IV SCH ×3 (03:26→16:16)
[2017-04-07 07:06] LABS: MANUAL DIFF NEEDED? NO
[2017-04-07 07:13] LABS: BASO% 0.5 % (0.0-0.8); EOS# 0.13 X1000 (0.0-0.7); EOS% 2.1 % (0.0-10.0); HEMATOCRIT 40.5 % (42.0-52.0); HEMOGLOBIN 14.1 g/dL (14.0-18.0); LYMPH# 1.75 X1000 (1.2-3.4); LYMPH% 28.2 % (20.5-51.1); MCH 30.5 PG (27-31); MCHC 34.8 g/dL (33-37); MCV 87.7 FL (81-99); MONO# 0.73 X1000 (0.11-0.59); MONO% 11.8 % (1.7-9.3); MPV 11.5 FL (7.4-10.4); NEUT% 57.4 % (42.2-75.2); PLT 256 X1000 (130-400); RBC 4.62 XMIL (4.7-6.1)
[2017-04-07 07:39] LABS: AGAP 11; BUN 8 mg/dL (8-22); CALCIUM 8.5 mg/dL (8.8-10.2); CHLORIDE 107 mmol/L (98-107); COSMO 282; POTASSIUM 4.4 mmol/L (3.5-5.1); SODIUM 141 mmol/L (136-145); TCO2 23 mmol/L (25-35)
--- NOTE | 2017-04-07 09:07 | PROGRESS NOTE ---
DATE: 04/07/2017 SUBJECTIVE: Patient is doing very well. Interval history was reviewed. The patient was seen by Dr. Plaza and Dr. Zurita debrided and it is getting close to the head of the 5th metatarsal bone. Bone scan has findings suspicious for osteomyelitis. Blood sugars are out of control. C-peptide is on the low side. REVIEW OF SYSTEMS: Otherwise none reported. PHYSICAL EXAMINATION: Vital Signs: Stable. Chest: Clear. Heart: Heart sounds are regular. Extremities: Left foot has bandage applied. LABORATORY DATA: Wound cultures are gram-negative rods. ASSESSMENT AND PLAN: 1. Fifth metatarsal osteomyelitis with pressure ulcer. Needs intravenous antibiotics. Waiting for a PICC line. Discussed with Dr. Plaza. He is going to decide the antibiotic down the road. 2. Diabetes is poorly controlled. C-peptide is on the low side. Continue on Glucovance. We will add long-acting insulin at bedtime. 3. Other problems are stable. Discussed the plan of care. 4. Level of documentation is 25 minutes. cc: Alberto Pascual MD
[2017-04-07] MEDS: TOPROL XL PO SCH (10:21)
[2017-04-07] MEDS: GLUCOPHAGE PO SCH ×4 (10:22→21:00)
[2017-04-07] MEDS: ALTACE PO SCH ×2 (10:22→21:33)
[2017-04-07] MEDS: ASPIRIN PO SCH ×2 (10:22→21:00)
[2017-04-07] MEDS: DIABETA PO SCH ×4 (10:22→21:00)
[2017-04-07] MEDS: NORVASC PO SCH (10:22)
[2017-04-07] MEDS: KEPPRA PO SCH ×2 (10:22→21:33)
[2017-04-07] MEDS ORDERED: GOLYTELY PO ONE (11:03)
[2017-04-07] MEDS: HUMALOG SUBQ SCH ×3 (13:12→21:33)
--- NOTE | 2017-04-07 19:04 | PROGRESS NOTE ---
DATE: 04/07/2017 CONCLUSION: Patient is status post debridement of the left foot by Dr. Rom Zurita. He is debrided down to and including the metatarsal head of the 5th toe. The patient's bone scan showed the patient had cellulitis and possibly osteomyelitis of the left foot. The chest x-ray did not show any bony changes. The wound from the patient's foot is growing Streptococcus Enterobacter and diphtheroids. MEDICATIONS: The patient currently is on Zosyn. PHYSICAL EXAMINATION: Vital Signs: Temperature is 97.6 degrees, pulse 69, respirations 14, blood pressure 124/68. General: This is a healthy-appearing middle-aged male. He is in no acute distress. Lungs: Clear to auscultation. Cardiovascular: Regular heart rate. Abdomen: Soft and nontender. Extremities: The patient has a PICC in his left arm. The site is not bleeding or swollen. The patient's left foot which is the one that underwent surgery has a dressing around it. The dressing is intact. LAB AND X-RAY: As mentioned above, the bone scan showed possible osteomyelitis. The x-ray showed no osteomyelitis. Culture from the foot grew Streptococcus Enterobacter and diphtheroids. Patient's CBC shows a white count of 6210, hemoglobin 14.1, and platelet count 256,000. Creatinine is 0.9. GFR is greater than 60.. ASSESSMENT AND PLAN: The patient already has a PICC in place. I put in a consult for [facility] to supply the patient's home IV antibiotic. I am switching the patient from Zosyn to cefepime. The dose of cefepime will be 2 g IV every 12 hours. I told the patient that plan is to treat him for 6 weeks with IV antibiotics. I have requested that the patient see me in the office at 3 weeks and then again at 6 weeks, at which time we will remove his PICC and stop his antibiotics. COMORBIDITIES: Are he has diabetes mellitus. cc: MD Alberto Granger MD
[2017-04-07] MEDS: MAXIPIME 2 GM/NS 2 GM/100 ML IVPB IV SCH (21:00)
[2017-04-07] MEDS: LOVENOX SUBQ SCH (21:33)
[2017-04-07] MEDS: LIPITOR PO SCH (21:33)
[2017-04-08] MEDS: HUMALOG SUBQ SCH ×5 (05:26→21:15)
--- NOTE | 2017-04-08 08:43 | PROGRESS NOTE ---
DATE: 04/08/2017 SUBJECTIVE: Interval history was reviewed. PICC line was placed on the left side. Cultures grew gram negative rods with Enterobacter diphtheroids and strep viridans. Discussed with Dr. Plaza. REVIEW OF SYSTEMS: None reported. PHYSICAL EXAMINATION: Vital Signs: Afebrile. Vitals are stable. HEENT: Within normal limits. Left foot: Bandage was applied. Otherwise, no change. Wound cultures Enterobacter or diphtheroids, viridans strep. ASSESSMENT AND PLAN: 1. Left foot 5th metatarsal osteomyelitis with cellulitis. Plan is home on IV antibiotics, cefepime 2 g every 12 hours for 6 weeks. 2. Diabetes. Poorly controlled. C-peptide is on the low side. We will consider using 10 units of Lantus at 9:00 p.m. 3. We will discuss with the social sciences department chair for outpatient antibiotics. Once the arrangements will be made, will be discharged. Level of Documentation: 25 minutes. cc: Alberto Pascual MD
[2017-04-08] MEDS: MAXIPIME 2 GM/NS 2 GM/100 ML IVPB IV SCH ×2 (09:29→21:15)
[2017-04-08] MEDS: DIABETA PO SCH ×2 (09:29→19:27)
[2017-04-08] MEDS: ASPIRIN PO SCH (09:29)
[2017-04-08] MEDS: ALTACE PO SCH ×2 (09:29→21:15)
[2017-04-08] MEDS: KEPPRA PO SCH ×2 (09:29→21:15)
[2017-04-08] MEDS: GLUCOPHAGE PO SCH ×2 (09:29→19:27)
[2017-04-08] MEDS: TOPROL XL PO SCH (09:29)
[2017-04-08] MEDS: NORVASC PO SCH (09:29)
[2017-04-08] MEDS: LIPITOR PO SCH (21:15)
[2017-04-08] MEDS: LOVENOX SUBQ SCH (21:15)
[2017-04-09] MEDS: HUMALOG SUBQ SCH (06:41)
[2017-04-09 08:12] VITALS: BP 121/66
[2017-04-09] MEDS: MAXIPIME 2 GM/NS 2 GM/100 ML IVPB IV SCH (08:41)
[2017-04-09] MEDS: DIABETA PO SCH (08:46)
[2017-04-09] MEDS: KEPPRA PO SCH (08:46)
[2017-04-09] MEDS: TOPROL XL PO SCH (08:46)
[2017-04-09] MEDS: ASPIRIN PO SCH (08:46)
[2017-04-09] MEDS: GLUCOPHAGE PO SCH (08:46)
[2017-04-09] MEDS: NORVASC PO SCH (08:47)
[2017-04-09] MEDS: ALTACE PO SCH (08:47)
--- NOTE | 2017-04-11 05:24 | DISCHARGE SUMMARY ---
ADMISSION DATE: 04/05/2017 DISCHARGE DATE: 04/09/2017 DISCHARGING DIAGNOSIS: Left foot peripheral neuropathy ulcer, 1 cm, associated with head of the 5th metatarsal osteomyelitis. SECONDARY DIAGNOSES: 1. Uncontrolled diabetes. A1c 10.9. 2. Benign prostatic hypertrophy. 3. History of seizures from stroke. 4. Hyperlipidemia. 5. Hypertension. 6. Left frontal lobe stroke. 7. History of noncompliance. CONSULTANTS: 1. Dr. Zurita. 2. Dr. Keo Plaza. PROCEDURES: 1. PICC line on the left side. 2. Debridement of left foot peripheral neuropathic ulcer. BRIEF HISTORY: Please see the H and P that was done on 04/05/2017. In brief, he is a 61-year- old, noncompliant, uncontrolled diabetes. He was admitted to the hospital from my office with chief complaints of a hole in the left foot. Examination is consistent with peripheral diabetic ulcer, 1 cm in diameter as well as in depth, almost probing into the bone, associated with localized cellulitis. He has decreased sensation with the monofilament exam. Pulses are palpable. SANDRA 0.9 on both sides. However, toe brachial index consistent with moderate distal vessel disease. HOSPITAL COURSE: He was started on IV antibiotics with Zosyn and wound consult after the cultures. Wound cultures grew Enterobacter cloacae diphtheroids and Streptococcus viridans. Surgical consult was obtained with debridement and further workup revealed, on the bone scan, consistent with osteomyelitis. MRI of the foot was negative. The patient was consulted with Dr. Plaza who initiated IV antibiotics with cefepime 2 g twice daily, to continue after putting the PICC line on the left side. The A1c was 10.9. C-peptide was 1.9. Patient was advised to start using low dose of long-acting insulin at bedtime. LABORATORIES: CBC: White cell count 6.2, hematocrit 40, platelets 256,000. SMA 7: Sodium 140, potassium 4.4, chloride 107, BUN 8, creatinine 0.9. C-peptide 1.9. A1c 10.6. CRP is 8.1. Sedimentation rate is 0. RADIOLOGY PROCEDURES: Bone scan is positive for osteomyelitis. Foot x-ray, soft-tissue edema with cellulitis at the 5th MTP joint. No erosion of the bone noted. Lower extremity MRI, soft tissue swelling suggestive of cellulitis and DJD changes at the base of the great toe. Arterial flow studies, no evidence of distal vessel disease. SANDRA right side is 0.8 and left side is 0.9. Toe brachial index 0.6 on the right and 0.5 on the left side. The findings are consistent with distal vessel disease. Wound cultures are positive for Enterobacter diphtheroid and viridans. DISCHARGE INSTRUCTIONS: Altace 10 p.o. b.i.d., metoprolol 100 daily, aspirin 325 daily, Keppra 500 p.o. b.i.d., Lipitor 40 daily, hydroxyzine 25 b.i.d., amlodipine 10 daily, Glucovance 5/500 two tablets p.o. b.i.d., Lantus 10 units at bedtime. Outpatient home health care for the wound consult. Outpatient IV antibiotics, to continue on cefepime 2 g q[address] Plaza. Follow up in my office 10 days. cc: MD Nikolay Ayers MD Hugh Nabers
== END 2017-04-09 13:09 | disposition home health service (06) ==
LOC: DIRADM 11:16 → 3N 12:13
PROVIDERS: ADMIT Internal Medicine; ATTEND Internal Medicine

== ENCOUNTER 2019-04-19 10:28 | Observation (INO) ==
[2019-04-19 14:14] LABS: BASO# 0.02 X1000 (0.0-0.2); BASO% 0.2 % (0.0-0.8); EOS# 0.06 X1000 (0.0-0.7); EOS% 0.7 % (0.0-10.0); HEMATOCRIT 42.8 % (42.0-52.0); HEMOGLOBIN 14.6 g/dL (14.0-18.0); IMM GRAN# 0.03 X1000 (0.0-0.04); IMM GRAN% 0.4 % (0.0-0.5); LYMPH# 1.63 X1000 (1.2-3.4); LYMPH% 20.3 % (20.5-51.1); MCH 29.1 PG (27-31); MCHC 34.1 g/dL (33-37); MCV 85.3 FL (81-99); MONO# 0.82 X1000 (0.11-0.59); MONO% 10.2 % (1.7-9.3); MPV 10.7 FL (7.4-10.4); NEUT# 5.48 X1000 (1.4-6.5); NEUT% 68.2 % (42.2-75.2); PLT 293 X1000 (130-400); RBC 5.02 XMIL (4.7-6.1); RDW 13.9 % (11.5-14.5); WBC 8.04 X1000 (4.8-10.8)
--- NOTE | 2019-04-19 15:46 | Diag Imaging Result Doc PS360 ---
MRI BRAIN W/WO CONTRAST - 04/19/2019 INDICATION: CVA COMPARISON: None FINDINGS: There is a small old cortical-based stroke at the superior left cerebral hemisphere. There is moderately extensive periventricular white matter chronic microvascular disease. No intracranial mass or hemorrhage. There is no abnormal contrast enhancement. There are some mucosal retention cysts in the maxillary sinuses bilaterally. Midline structures are unremarkable. IMPRESSION: Chronic ischemic changes of the brain. No acute process. Electronically signed by Jluis Childers 04/19/2019 3:44 PM
[2019-04-19] MEDS: HUMULIN R SUBQ SCH ×2 (19:47→23:45)
--- NOTE | 2019-04-19 21:43 | HISTORY AND PHYSICAL ---
CHIEF COMPLAINT: Poor balance, stumbling and staggering on the right side, for the last 1 week. HISTORY OF PRESENT ILLNESS: He is a 63-year-old male who was evaluated in my office with dizziness and falling on the right side and weakness. Family was at bedside. He had a carotid Doppler which was negative. He has history of previous stroke. He is noncompliant. Basically, admitted to the hospital to rule out CVA. He was not able to ambulate and leaning toward the right side. He has some cerebellar signs noted. PAST MEDICAL HISTORY: 1. BPH. 2. Type 2 diabetes. 3. Dupuytren's contracture. 4. 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 5. Hyperlipidemia. 6. Hypertension. 7. Neuropathy due to diabetes. 8. Left-sided stroke syndrome. 9. Lacunar stroke. 10. Diabetic arthropathy. PAST SURGICAL HISTORY: 1. Myringotomy and bilateral tubes. 2. Circumcision. MEDICATIONS: 1. Amlodipine 10 mg daily. 2. Aspirin 325 daily. 3. Lipitor 80 daily. 4. Glucovance 5/500 p.o. b.i.d. 5. Insulin Lantus 20 units subcutaneous b.i.d. 6. Keppra 500 p.o. b.i.d. 7. Meclizine 25 t.i.d. 8. Metoprolol 100 daily. 9. Multivitamin 1 tablet daily. 10. Altace 10 mg p.o. b.i.d. ALLERGIES: Reported to not known. SOCIAL HISTORY: He is second time for 5 years. Two children. Lives in [place]. No drugs. No alcohol. No smoking. FAMILY HISTORY: Father at the age of 67 from diabetes and heart attack. Mother is 83 years old and still living. Siblings significant for diabetes and heart disease. HEALTH MAINTENANCE: Reported influenza vaccine declined. Pneumococcal, August 2016. Tdap 2017. Last physical, October 2018. Colonoscopy, 2011, by Dr. Joe. REVIEW OF SYSTEMS: HEENT: No headache, no vision problem, no nausea, no earache, no sore throat. Neck: No goiter. No lymphadenopathy. No bruit. Cardiopulmonary: No chest pain, shortness of breath, PND, orthopnea. GI: No nausea, vomiting, abdominal pain. : No history of hesitancy, frequency. Neurologic: Weakness on the right leg. Not able to walk, losing the balance. No neurological symptoms otherwise. OBJECTIVE: Vital Signs: Temperature is 97 degrees, pulse 79, blood pressure 142/88. HEENT: Atraumatic, normocephalic. Pupils equal, reactive to light. No nystagmus. TMs are normal. Neck: Supple. No lymphadenopathy. No bruit. Chest: Bilateral air entry. Heart: Sounds are regular. Abdomen: Belly is soft, nontender. Good bowel sounds. Rectal: Deferred. Extremities: Decreased pulses in both feet. He also had a surgery on the left foot; scar noted. Neurologic: No obvious neurological deficits, but positive Romberg on the right side. LABS: CBC is normal. Digoxin level is 0.3. SMA 7 in my office is notable. Last A1c was 9.6 and last lipid profile, glucose 271, LDL 207. ASSESSMENT AND PLAN: A 63-year-old male with complicated diabetes with neuropathy, nephropathy, microangiopathy, came in with a staggering gait, positive Romberg sign, balance problem, admitted to the hospital. 1. Rule out cerebrovascular accident. MRI of the brain, carotid Dopplers were negative. 2. Reconcile home medicines. 3. Physical therapy consult. 4. Check the blood flow in both legs. 5. Based on that, further recommendations will be followed. cc: Alberto Pascual MD
[2019-04-19] MEDS: KEPPRA PO SCH (23:44)
[2019-04-19] MEDS: GLUCOVANCE 5-500 MG TABLET PO SCH (23:44)
[2019-04-19] MEDS: LOVENOX SUBQ SCH (23:44)
[2019-04-19] MEDS: COLACE PO SCH (23:44)
[2019-04-19] MEDS: ALTACE PO SCH (23:44)
[2019-04-19] MEDS: LANTUS INSULIN SUBQ SCH (23:45)
[2019-04-20] MEDS: HUMULIN R SUBQ SCH ×4 (06:33→21:10)
[2019-04-20 06:54] LABS: I-STAT CREATININE 0.6 mg/dL (0.6-1.3)
--- NOTE | 2019-04-20 07:11 | VASCULAR LAB ---
DATE: 04/19/2019 MACHINE III COREMAKER: Marla. REQUESTING PHYSICIAN: Dr. Pascual. INDICATIONS: CAD. Exam comparison to 04/05/2017. FINDINGS: Brachial on the right is 164, on the left 170. High thigh on the right is 250, on the left 250. Low thigh on the right is 250, on the left 250. Calf on the right is 204, left 193. DP on the right is 137, on the left 140. PT on the right is 124, on the left 149. Toe pressure on the right is 81, left toe 40. SANDRA on the right 0.8, left 0.88. Toe pressure on the right is 0.48, on the left 0.61. SUMMARY: Blunting of the waveforms through out that become more prominent below the knees bilaterally. The SANDRA is depressed but worse slightly when compared to previous study. There is even more diminishing of the waveforms at the toe level, worse on the right than the left. Mild atherosclerotic changes noted to bilateral lower extremities to correlate with angiography if clinically indicated. cc: MD Alberto Mireles MD MTDD
--- NOTE | 2019-04-20 07:31 | EKG Report ---
Test Performed on : 04/20/2019 07:17:56 AM Test Reason : cp Blood Pressure : / mmHG Vent. Rate : 075 BPM Atrial Rate : 075 BPM P-R Int : 142 ms QRS Dur : 070 ms QT Int : 388 ms P-R-T Axes : 053 033 084 degrees QTc Int : 433 ms Normal sinus rhythm. Nonspecific T wave abnormality Abnormal ECG When compared with ECG of 14-JUL-2017 14:49, Nonspecific T wave abnormality now evident in Inferior leads Nonspecific T wave abnormality, worse in Lateral leads Confirmed by Keo Rousseau MD ([id number]) on 04/22/2019 8:56:30 PM
[2019-04-20 07:51] LABS: AGAP 10; BUN 10 mg/dL (8-22); CALCIUM 9.1 mg/dL (8.8-10.2); CHLORIDE 107 mmol/L (98-107); CK PROFILE 93 U/L (24-204); COSMO 278; CREATININE 0.9 mg/dL (0.7-1.2); ESTIMATED GFR > 60; GLUCOSE 62 mg/dL (70-104); POTASSIUM 3.5 mmol/L (3.5-5.1); SODIUM 141 mmol/L (136-145); TCO2 24 mmol/L (25-35)
[2019-04-20] MEDS: GLUCOVANCE 5-500 MG TABLET PO SCH ×2 (09:17→20:36)
[2019-04-20] MEDS: ALTACE PO SCH ×2 (09:17→20:36)
[2019-04-20] MEDS: LIPITOR PO SCH (09:17)
[2019-04-20] MEDS: KEPPRA PO SCH ×2 (09:17→20:36)
[2019-04-20] MEDS: TOPROL XL PO SCH (09:17)
[2019-04-20] MEDS: COLACE PO SCH ×2 (09:18→20:36)
[2019-04-20] MEDS: ASPIRIN PO SCH (09:18)
[2019-04-20] MEDS: ANTIVERT PO SCH ×3 (09:18→17:58)
[2019-04-20] MEDS: NORVASC PO SCH (09:18)
[2019-04-20] MEDS: LANTUS INSULIN SUBQ SCH ×2 (09:32→20:37)
[2019-04-20] MEDS: LOVENOX SUBQ SCH (20:37)
--- NOTE | 2019-04-20 21:29 | PROGRESS NOTE ---
DATE: 04/20/2019 SUBJECTIVE: The patient is a little bit confused this morning. is not there. OBJECTIVE: On exam, no complaints. Vital signs: Temperature is 98 degrees, pulse is 80, blood pressure is 128/76. HEENT exam within normal limits. Neck is supple. Chest is clear. Heart sounds are regular. Belly is soft, nontender. Decreased pulses in both legs. LABORATORY DATA: SMA 12: Sodium 141, potassium 3.5, chloride 107, BUN 10, creatinine 0.9, glucose 62. CK is normal. TSH is normal. Vitamin D is very low. DIAGNOSTIC DATA: 1. MRI of the brain is negative. 2. Arterial flow studies: SANDRA right side 0.8, left side is 0.8. Toe pressure on the right side 0.48, left side is 0.01. ASSESSMENT AND PLAN: 1. Dizziness, vertigo, staggering, multifactorial. 2. No evidence of stroke. Carotid Doppler are negative. 3. Peripheral neuropathy in both legs. 4. Controlled diabetes. 5. Vitamin D deficiency, on replacement therapy. 6. Out of the bed with physical therapy. We will discuss with and continue the secondary prevention. If he is stable, we will discharge in the morning. Level of documentation 25 minutes. cc: Alberto Pascual MD
[2019-04-21] MEDS: LOVENOX SUBQ SCH (00:20)
[2019-04-21] MEDS: HUMULIN R SUBQ SCH (06:10)
[2019-04-21] MEDS ORDERED: VITAMIN D PO SCH (09:00)
[2019-04-21] MEDS: NORVASC PO SCH (09:22)
[2019-04-21] MEDS: COLACE PO SCH (09:22)
[2019-04-21] MEDS: ALTACE PO SCH (09:22)
[2019-04-21] MEDS: GLUCOVANCE 5-500 MG TABLET PO SCH (09:22)
[2019-04-21] MEDS: ASPIRIN PO SCH (09:23)
[2019-04-21] MEDS: KEPPRA PO SCH (09:23)
[2019-04-21] MEDS: LIPITOR PO SCH (09:23)
[2019-04-21] MEDS: TOPROL XL PO SCH (09:23)
[2019-04-21] MEDS: LANTUS INSULIN SUBQ SCH (09:23)
[2019-04-21] MEDS: ANTIVERT PO SCH (09:24)
[2019-04-21 11:38] VITALS: BP 167/95
--- NOTE | 2019-04-23 16:42 | DISCHARGE SUMMARY ---
ADMISSION DATE: 04/19/2019 DISCHARGE DATE: 04/21/2019 DISCHARGING DIAGNOSIS: Dizziness, staggering gait on the right side, probably deconditioning from multifactorial with underlying diabetes with neuropathy. SECONDARY DIAGNOSES: 1. Uncontrolled type 2 diabetes. 2. Noncompliance. 3. Benign prostatic hypertrophy. 4. Dupuytren's contractures in both hands. 5. History of epilepsy from the previous stroke. 6. Hyperlipidemia. 7. Hypertension. 8. Peripheral neuropathy due to diabetes. 9. History of lacunar stroke on the left side. 10. Diabetic arthropathy. BRIEF HISTORY: Please see the H and P that was done on 04/19/2019. In brief, he is a 63-year- old, male who was admitted to the hospital with dizziness, staggering gait, falling, mostly on the right side. He did not have any cerebellar signs. He has multiple medical problems as above. HOSPITAL COURSE: He was admitted for rule out stroke. MRI did not show any evidence of acute stroke with chronic ischemic changes. Prior carotid Doppler was negative for carotid disease. The rest of the hospital course was uneventful. He also had arterial flow studies done that showed right SANDRA 0.8, left side is 0.8. Toe pressure on the right side 0.4, left side is 0.61. He has blunting of the waveforms below the knees. He has some small-vessel disease as well. Findings were discussed. He needs to control his diabetes, hypertension, hyperlipidemia. LABS: CBC: White cell count 8, hematocrit 42, platelets 293,000. Sodium 141, potassium 3.5, chloride 107, BUN 10, creatinine 0.9, glucose 113. Vitamin D is also 15.6. TSH, CK were normal. DISCHARGE INSTRUCTIONS: Altace 10 mg p.o. b.i.d., metoprolol 100 daily, aspirin 325 daily, Keppra 500 p.o. b.i.d., glyburide/metformin 5/500 two tablets p.o. b.i.d., Lantus 10 units at bedtime, multivitamin 1 tablet daily, Lipitor 80 mg daily, amlodipine 10 daily, keep the A1c below 8 and LDL less than 70, blood pressure 120/80. Follow up in my office in 10 days. cc: Alberto Pascual MD
== END 2019-04-21 11:46 | disposition home health service (06) ==
LOC: INTOOBSV 10:28 → DIRADM 10:28 → 1N 11:15
PROVIDERS: ADMIT Internal Medicine; ATTEND Internal Medicine
CPT/HCPCS: 70553; 80048; 80162; 82306; 82550; 82565; 82948; 84443; 84520; 85025; 93005; 93010; 93923; 97110; 97162; 97530; A9270; A9579; J1650; J1815; XXXXX